=== PATIENT | female | born 1960 | race Caucasian/White ===

== ENCOUNTER 2016-05-31 10:21 | Emergency (ER) | payer OTHER ==
[2016-05-31] MEDS ORDERED: ASPIRIN 81 MG CHEW TAB ONE (10:42)
[2016-05-31] MEDS ORDERED: ALU/MAG/SIM 30 ML UDC ONE (10:42)
[2016-05-31] MEDS ORDERED: LIDOCAINE 2% VISC 15 ML UDC ONE (10:43)
[2016-05-31] MEDS ORDERED: KETOROLAC 30 MG/ML VIAL ONE (11:54)
== END 2016-05-31 14:56 | disposition home or self-care (01) ==
LOC: ER 10:21
CPT/HCPCS: 36415; 71010; 80053; 82550; 83735; 84484; 85025; 85610; 85730; 93005